=== PATIENT | female | born 1950 | race Caucasian/White ===

== ENCOUNTER 2020-08-20 08:23 | Inpatient (IN) ==
[2020-08-20] MEDS ORDERED: MORPHINE 4 MG/1 ML VIAL IV PRN (14:27)
[2020-08-21] MEDS: ONDANSETRON 4 MG/2 ML VIAL IV PRN ×2 (00:14→11:22)
[2020-08-21 05:48] LABS: Calcium 8.9 MG/DL (8.5-10.1); Potassium 4.4 MMOL/L (3.5-5.1)
[2020-08-21] MEDS: MORPHINE 4 MG/1 ML VIAL IV PRN (09:26)
[2020-08-21] MEDS: lisinopriL 10 MG TABLET PO SCH (09:27)
[2020-08-22] MEDS: oxyCODONE/ACETAMINOPHEN 5-325 MG TABLET PO PRN ×2 (08:42→15:49)
[2020-08-22] MEDS: lisinopriL 10 MG TABLET PO SCH (08:43)
[2020-08-22] MEDS: ONDANSETRON 4 MG/2 ML VIAL IV PRN (15:45)
[2020-08-22] MEDS: MORPHINE 4 MG/1 ML VIAL IV PRN (19:45)
[2020-08-23] MEDS: MORPHINE 4 MG/1 ML VIAL IV PRN (06:08)
[2020-08-23] MEDS: ONDANSETRON 4 MG/2 ML VIAL IV PRN ×2 (06:13→13:00)
[2020-08-23] MEDS: lisinopriL 10 MG TABLET PO SCH (09:31)
[2020-08-23] MEDS: PROCHLORPERAZINE 5 MG TABLET PO SCH ×2 (15:20→20:57)
[2020-08-24] MEDS: lisinopriL 10 MG TABLET PO SCH (08:39)
[2020-08-24] MEDS: PROCHLORPERAZINE 5 MG TABLET PO SCH ×3 (08:39→20:20)
[2020-08-24] MEDS ORDERED: MAGNESIUM HYDROXIDE SUSP 30 ML UDCUP PO PRN (10:54)
[2020-08-24] MEDS ORDERED: CLINDAMYCIN INJ 900 MG/50 ML PREMIX IV ONE (11:02)
[2020-08-24] MEDS: POLYETHYLENE GLYCOL POWDER 17 GM PACK PO SCH ×2 (11:30→21:18)
[2020-08-24] MEDS: DOCUSATE SODIUM 100 MG CAPSULE PO SCH ×2 (11:30→21:18)
[2020-08-24] MEDS ORDERED: LIDOCAINE 1%/EPI INJ 20 ML VIAL ONE (16:58)
[2020-08-24] MEDS ORDERED: LIDOCAINE 2% 5 ML VIAL ONE (17:03)
[2020-08-24] MEDS ORDERED: MIDAZOLAM 2 MG/2 ML VIAL ONE (17:03)
[2020-08-24] MEDS ORDERED: fentaNYL 100 MCG/2 ML VIAL ONE (17:03)
[2020-08-24] MEDS ORDERED: propofoL 200 MG/20 ML VIAL IV ONE (17:03)
[2020-08-24] MEDS ORDERED: LACTATED RINGERS 1,000 ML IV ONE (17:39)
[2020-08-24] MEDS: MORPHINE 4 MG/1 ML VIAL IV PRN (18:53)
[2020-08-24] MEDS: oxyCODONE/ACETAMINOPHEN 5-325 MG TABLET PO PRN (22:29)
[2020-08-25] MEDS: MORPHINE 4 MG/1 ML VIAL IV PRN (04:23)
[2020-08-25 06:54] LABS: Basophils % 0.2 % (0.0-0.8); Eosinophils # 0.1 10*3/uL (0.0-0.87); Eosinophils % 1.1 % (0.00-10.9); Hematocrit 34.6 VOL% (35.7-47.0); Immature Granulocytes % 0.6 %; Immature Granulocytes Absolute 0.04 #; Lymphocytes # 1.1 10*3/uL (1.4-4.0); Lymphocytes % 18.1 % (21.3-54.2); Mean Corpuscular HGB Conc 34.7 GM/DL (32-36); Mean Corpuscular Volume 89.6 FL (87-102); Mean Platelet Volume 9.9 FL (9.6-12.0); Monocytes % 7.2 % (1.7-12.7); Neutrophils % 72.8 % (38.7-73.9); Platelet Count 280 T/CUMM (130-400); Red Blood Count 3.86 MC/CUMM (3.8-5.5); Red Cell Distribution Width 12.9 % (9.3-17.3); White Blood Count 6.3 T/CUMM (4-12)
[2020-08-25 07:10] LABS: Calcium 8.4 MG/DL (8.5-10.1); Osmolality,Calculated 266.2 MOS/KG (273-304); Potassium 3.7 MMOL/L (3.5-5.1)
[2020-08-25] MEDS: DOCUSATE SODIUM 100 MG CAPSULE PO SCH ×2 (08:46→21:20)
[2020-08-25] MEDS: lisinopriL 10 MG TABLET PO SCH (08:46)
[2020-08-25] MEDS: POLYETHYLENE GLYCOL POWDER 17 GM PACK PO SCH ×2 (08:47→21:20)
[2020-08-25] MEDS: LINACLOTIDE 145 MCG CAPSULE PO SCH (08:47)
[2020-08-25] MEDS: ONDANSETRON 4 MG/2 ML VIAL IV PRN (08:47)
[2020-08-25] MEDS: PROCHLORPERAZINE 5 MG TABLET PO SCH ×3 (08:47→21:20)
[2020-08-25] MEDS: oxyCODONE/ACETAMINOPHEN 5-325 MG TABLET PO PRN ×2 (08:47→16:13)
[2020-08-25] MEDS: ALBUTEROL/IPRATROPIUM 3 ML NEB RESP TX SCH (20:05)
[2020-08-26] MEDS: ALBUTEROL/IPRATROPIUM 3 ML NEB RESP TX SCH ×4 (00:31→20:22)
[2020-08-26 05:43] LABS: Basophils % 0.2 % (0.0-0.8); Eosinophils # 0.1 10*3/uL (0.0-0.87); Hematocrit 34.5 VOL% (35.7-47.0); Hemoglobin 11.6 GM/DL (12.0-16.0); Immature Granulocytes Absolute 0.06 #; Lymphocytes # 1.2 10*3/uL (1.4-4.0); Lymphocytes % 20.2 % (21.3-54.2); Mean Corpuscular HGB Conc 33.6 GM/DL (32-36); Mean Corpuscular Volume 91.3 FL (87-102); Monocytes % 7.7 % (1.7-12.7); Neutrophils % 68.9 % (38.7-73.9); Platelet Count 265 T/CUMM (130-400); Red Blood Count 3.78 MC/CUMM (3.8-5.5); Red Cell Distribution Width 12.9 % (9.3-17.3); White Blood Count 6.1 T/CUMM (4-12)
[2020-08-26 06:17] LABS: Calcium 8.4 MG/DL (8.5-10.1); Potassium 3.5 MMOL/L (3.5-5.1)
[2020-08-26] MEDS: oxyCODONE/ACETAMINOPHEN 5-325 MG TABLET PO PRN ×3 (06:33→23:22)
[2020-08-26] MEDS: ONDANSETRON 4 MG/2 ML VIAL IV PRN (06:33)
[2020-08-26] MEDS: LINACLOTIDE 145 MCG CAPSULE PO SCH (06:34)
[2020-08-26] MEDS: POLYETHYLENE GLYCOL POWDER 17 GM PACK PO SCH ×2 (09:35→20:47)
[2020-08-26] MEDS: PROCHLORPERAZINE 5 MG TABLET PO SCH ×3 (09:35→20:47)
[2020-08-26] MEDS: lisinopriL 10 MG TABLET PO SCH (09:35)
[2020-08-26] MEDS: DOCUSATE SODIUM 100 MG CAPSULE PO SCH ×2 (09:35→20:47)
[2020-08-27] MEDS: ALBUTEROL/IPRATROPIUM 3 ML NEB RESP TX SCH ×4 (01:12→20:28)
[2020-08-27 05:19] LABS: Basophils % 0.3 % (0.0-0.8); Eosinophils # 0.2 10*3/uL (0.0-0.87); Eosinophils % 2.4 % (0.00-10.9); Hematocrit 35.4 VOL% (35.7-47.0); Immature Granulocytes % 1.9 %; Immature Granulocytes Absolute 0.12 #; Lymphocytes # 1.2 10*3/uL (1.4-4.0); Lymphocytes % 19.5 % (21.3-54.2); Mean Corpuscular HGB Conc 33.9 GM/DL (32-36); Mean Corpuscular Volume 90.8 FL (87-102); Monocytes % 9.4 % (1.7-12.7); Neutrophils % 66.5 % (38.7-73.9); Platelet Count 259 T/CUMM (130-400); Red Cell Distribution Width 12.9 % (9.3-17.3); White Blood Count 6.3 T/CUMM (4-12)
[2020-08-27 05:39] LABS: Calcium 8.4 MG/DL (8.5-10.1); Osmolality,Calculated 270.8 MOS/KG (273-304); Potassium 3.6 MMOL/L (3.5-5.1)
[2020-08-27] MEDS: ONDANSETRON 4 MG/2 ML VIAL IV PRN (07:54)
[2020-08-27] MEDS: LINACLOTIDE 145 MCG CAPSULE PO SCH (09:02)
[2020-08-27] MEDS: DOCUSATE SODIUM 100 MG CAPSULE PO SCH ×2 (09:02→21:21)
[2020-08-27] MEDS: PROCHLORPERAZINE 5 MG TABLET PO SCH ×3 (09:02→21:22)
[2020-08-27] MEDS: POLYETHYLENE GLYCOL POWDER 17 GM PACK PO SCH ×2 (09:02→21:22)
[2020-08-27] MEDS: lisinopriL 10 MG TABLET PO SCH (09:03)
[2020-08-27] MEDS: oxyCODONE/ACETAMINOPHEN 5-325 MG TABLET PO PRN (09:03)
[2020-08-27] MEDS ORDERED: LIDOCAINE 1% INTRAPLEUR ONE ×2 (11:00)
[2020-08-27] MEDS ORDERED: STERILE WATER INTRAPLEUR ONE ×2 (11:00)
[2020-08-27] MEDS ORDERED: DOXYCYCLINE HYCLATE INTRAPLEUR ONE ×2 (11:00)
[2020-08-27] MEDS: MORPHINE 4 MG/1 ML VIAL IV PRN (17:55)
[2020-08-28] MEDS: ALBUTEROL/IPRATROPIUM 3 ML NEB RESP TX SCH ×2 (00:55→17:01)
[2020-08-28 06:47] LABS: Basophils % 0.1 % (0.0-0.8); Eosinophils # 0.1 10*3/uL (0.0-0.87); Eosinophils % 1.3 % (0.00-10.9); Hematocrit 37.1 VOL% (35.7-47.0); Hemoglobin 12.2 GM/DL (12.0-16.0); Immature Granulocytes % 1.4 %; Lymphocytes # 1.1 10*3/uL (1.4-4.0); Lymphocytes % 16.1 % (21.3-54.2); Mean Corpuscular HGB Conc 32.9 GM/DL (32-36); Mean Corpuscular Volume 91.4 FL (87-102); Mean Platelet Volume 9.9 FL (9.6-12.0); Monocytes % 8.6 % (1.7-12.7); Neutrophils % 72.5 % (38.7-73.9); Platelet Count 284 T/CUMM (130-400); Red Blood Count 4.06 MC/CUMM (3.8-5.5); Red Cell Distribution Width 12.9 % (9.3-17.3)
[2020-08-28 07:03] LABS: Calcium 8.3 MG/DL (8.5-10.1); Osmolality,Calculated 264.2 MOS/KG (273-304); Potassium 3.8 MMOL/L (3.5-5.1)
[2020-08-28] MEDS: oxyCODONE/ACETAMINOPHEN 5-325 MG TABLET PO PRN ×3 (07:37→20:21)
[2020-08-28] MEDS: POLYETHYLENE GLYCOL POWDER 17 GM PACK PO SCH ×2 (08:11→22:02)
[2020-08-28] MEDS: PROCHLORPERAZINE 5 MG TABLET PO SCH ×3 (08:11→22:02)
[2020-08-28] MEDS: LINACLOTIDE 145 MCG CAPSULE PO SCH (08:11)
[2020-08-28] MEDS: lisinopriL 10 MG TABLET PO SCH (08:11)
[2020-08-28] MEDS: DOCUSATE SODIUM 100 MG CAPSULE PO SCH ×2 (08:11→22:02)
[2020-08-29] MEDS: ALBUTEROL/IPRATROPIUM 3 ML NEB RESP TX SCH ×5 (04:24→20:07)
[2020-08-29] MEDS: oxyCODONE/ACETAMINOPHEN 5-325 MG TABLET PO PRN ×3 (05:40→21:02)
[2020-08-29 06:27] LABS: Calcium 8.6 MG/DL (8.5-10.1); Osmolality,Calculated 267.1 MOS/KG (273-304); Potassium 3.5 MMOL/L (3.5-5.1)
[2020-08-29] MEDS ORDERED: NITROGLYCERIN SL 0.4 MG TABLET SL ONE (09:07)
[2020-08-29] MEDS: LINACLOTIDE 145 MCG CAPSULE PO SCH (09:33)
[2020-08-29] MEDS: POLYETHYLENE GLYCOL POWDER 17 GM PACK PO SCH ×2 (09:33→21:01)
[2020-08-29] MEDS: DOCUSATE SODIUM 100 MG CAPSULE PO SCH ×2 (09:33→21:01)
[2020-08-29] MEDS: lisinopriL 10 MG TABLET PO SCH (09:33)
[2020-08-29] MEDS: PROCHLORPERAZINE 5 MG TABLET PO SCH ×3 (09:33→21:01)
[2020-08-30] MEDS: ALBUTEROL/IPRATROPIUM 3 ML NEB RESP TX SCH (01:45)
[2020-08-30] MEDS: oxyCODONE/ACETAMINOPHEN 5-325 MG TABLET PO PRN ×3 (03:19→17:59)
[2020-08-30 05:49] LABS: Calcium 8.5 MG/DL (8.5-10.1); Osmolality,Calculated 263.4 MOS/KG (273-304); Potassium 3.8 MMOL/L (3.5-5.1)
[2020-08-30] MEDS: lisinopriL 10 MG TABLET PO SCH (09:20)
[2020-08-30] MEDS: PROCHLORPERAZINE 5 MG TABLET PO SCH ×3 (09:20→20:41)
[2020-08-30] MEDS: LINACLOTIDE 145 MCG CAPSULE PO SCH (09:20)
[2020-08-30] MEDS: DOCUSATE SODIUM 100 MG CAPSULE PO SCH ×2 (09:20→20:41)
[2020-08-30] MEDS: POLYETHYLENE GLYCOL POWDER 17 GM PACK PO SCH ×2 (09:20→20:58)
[2020-08-30] MEDS ORDERED: NICOTINE 21 MG/24 HR PATCH TRANSDERM PRN (15:23)
[2020-08-31 06:43] LABS: Basophils % 0.4 % (0.0-0.8); Eosinophils # 0.3 10*3/uL (0.0-0.87); Eosinophils % 3.6 % (0.00-10.9); Hematocrit 35.9 VOL% (35.7-47.0); Immature Granulocytes % 2.2 %; Immature Granulocytes Absolute 0.16 #; Lymphocytes # 1.5 10*3/uL (1.4-4.0); Lymphocytes % 19.9 % (21.3-54.2); Mean Corpuscular HGB Conc 33.4 GM/DL (32-36); Mean Corpuscular Volume 91.1 FL (87-102); Mean Platelet Volume 9.8 FL (9.6-12.0); Monocytes % 9.2 % (1.7-12.7); Neutrophils % 64.7 % (38.7-73.9); Platelet Count 304 T/CUMM (130-400); Red Blood Count 3.94 MC/CUMM (3.8-5.5); White Blood Count 7.4 T/CUMM (4-12)
[2020-08-31 07:07] LABS: Calcium 8.5 MG/DL (8.5-10.1); Potassium 3.7 MMOL/L (3.5-5.1)
[2020-08-31] MEDS: LINACLOTIDE 145 MCG CAPSULE PO SCH (07:50)
[2020-08-31] MEDS: oxyCODONE/ACETAMINOPHEN 5-325 MG TABLET PO PRN ×4 (07:50→20:56)
[2020-08-31] MEDS: POLYETHYLENE GLYCOL POWDER 17 GM PACK PO SCH ×2 (08:43→21:46)
[2020-08-31] MEDS: lisinopriL 10 MG TABLET PO SCH (08:47)
[2020-08-31] MEDS: PROCHLORPERAZINE 5 MG TABLET PO SCH ×4 (08:47→20:56)
[2020-08-31] MEDS: DOCUSATE SODIUM 100 MG CAPSULE PO SCH ×2 (08:48→20:56)
[2020-09-01] MEDS: oxyCODONE/ACETAMINOPHEN 5-325 MG TABLET PO PRN ×2 (06:07→16:25)
[2020-09-01] MEDS: DOCUSATE SODIUM 100 MG CAPSULE PO SCH ×2 (08:58→21:56)
[2020-09-01] MEDS: lisinopriL 10 MG TABLET PO SCH (08:58)
[2020-09-01] MEDS: PROCHLORPERAZINE 5 MG TABLET PO SCH ×4 (08:58→21:56)
[2020-09-01] MEDS: LINACLOTIDE 145 MCG CAPSULE PO SCH (08:58)
[2020-09-01] MEDS: POLYETHYLENE GLYCOL POWDER 17 GM PACK PO SCH ×2 (08:58→21:58)
[2020-09-02] MEDS: oxyCODONE/ACETAMINOPHEN 5-325 MG TABLET PO PRN ×3 (01:55→21:23)
[2020-09-02] MEDS: LINACLOTIDE 145 MCG CAPSULE PO SCH (08:48)
[2020-09-02] MEDS: DOCUSATE SODIUM 100 MG CAPSULE PO SCH ×2 (08:48→21:21)
[2020-09-02] MEDS: PROCHLORPERAZINE 5 MG TABLET PO SCH ×4 (08:48→21:21)
[2020-09-02] MEDS: lisinopriL 10 MG TABLET PO SCH (08:48)
[2020-09-02] MEDS: POLYETHYLENE GLYCOL POWDER 17 GM PACK PO SCH ×2 (10:00→22:25)
[2020-09-03] MEDS: oxyCODONE/ACETAMINOPHEN 5-325 MG TABLET PO PRN ×3 (04:55→20:26)
[2020-09-03] MEDS: LINACLOTIDE 145 MCG CAPSULE PO SCH (09:44)
[2020-09-03] MEDS: lisinopriL 10 MG TABLET PO SCH (09:44)
[2020-09-03] MEDS: DOCUSATE SODIUM 100 MG CAPSULE PO SCH ×2 (09:44→20:26)
[2020-09-03] MEDS: PROCHLORPERAZINE 5 MG TABLET PO SCH ×4 (09:45→20:27)
[2020-09-03] MEDS: POLYETHYLENE GLYCOL POWDER 17 GM PACK PO SCH ×2 (09:45→20:27)
[2020-09-04] MEDS: PROCHLORPERAZINE 5 MG TABLET PO SCH ×4 (06:14→16:20)
[2020-09-04] MEDS: oxyCODONE/ACETAMINOPHEN 5-325 MG TABLET PO PRN ×2 (06:14→10:23)
[2020-09-04] MEDS: LINACLOTIDE 145 MCG CAPSULE PO SCH ×2 (06:15→06:52)
[2020-09-04] MEDS: DOCUSATE SODIUM 100 MG CAPSULE PO SCH (08:55)
[2020-09-04] MEDS: lisinopriL 10 MG TABLET PO SCH (08:55)
[2020-09-04] MEDS: POLYETHYLENE GLYCOL POWDER 17 GM PACK PO SCH (08:56)
[2020-09-04 15:48] VITALS: BP 131/60
== END 2020-09-04 17:15 | disposition home or self-care (01) | DRG 199 ==
LOC: N.RAD 08:23 → N.4E 11:29 → SUATTDRO 08-21 09:10 → N.4E 08-21 09:10
PROVIDERS: ADMIT Radiology Diagnostic Radiology; ATTEND Internal Medicine